=== PATIENT | female | born 1960 | race Caucasian/White ===

== ENCOUNTER 2017-07-26 07:24 | Emergency (ER) | payer BC ==
[~2017-07-26] VITALS: Ht 157.5 cm; Wt 102.7 kg
[~2017-07-26 07:24] MED LIST: NAPROSYN500 MG PO; VALIUM5 MG PO; ZIAC 5/6.251 TABLET PO
[2017-07-26 08:08] LABS: HEMATOCRIT 39.6 % (36.0-46.0); HEMOGLOBIN 13.7 G/DL (11.9-15.5); MCH 31.3 PG (29.0-34.0); MCHC 34.6 G/DL (30.0-36.0); MCV 90.4 FL (83-99); PLATELET COUNT 225 K/uL (156-360); RBC DIS.WIDTH-CV 11.8 % (11.8-14.6); RBC DIS.WIDTH-SD 38.9 % (39-53); RED BLOOD COUNT 4.38 M/uL (3.80-5.20)
[2017-07-26 08:16] LABS: CHLORIDE 102 mEq/L (99-109); POTASSIUM 3.8 mEq/L (3.7-5.4); SODIUM 139 mEq/L (136-147)
[2017-07-26 08:17] LABS: GLUCOSE 202 mg/dL (70-99)
[2017-07-26 08:21] LABS: CREATININE 0.8 mg/dL (0.6-1.3); GFR ESTIMATE (CALCULATED) > 59 mL/min/
[2017-07-26 08:22] LABS: UREA NITROGEN (BUN) 20 mg/dL (9-23)
[2017-07-26 09:05] LABS: BILIRUBIN NEGATIVE; BLOOD SMALL; COLOR YELLOW ((YELLOW)); GLUCOSE (STRIP) 50; KETONES NEGATIVE; LEUKOCYTES SMALL; NITRITE NEGATIVE; PROTEIN (STRIP) NEGATIVE; SPECIFIC GRAVITY 1.019 (1.000-1.030); UROBILINOGEN 0.2 MG/DL (0.2-1.0)
[2017-07-26 09:06] LABS: APPEARANCE SL.HAZY ((CLEAR))
[2017-07-26 09:10] LABS: BACTERIA 3+ /HPF; EPITHELIAL CELLS RARE /HPF; MUCUS TRACE /LPF; UCUL ADDED? YES; WHITE BLOOD CELLS 20-30 /HPF (0-5)
[2017-07-26] MEDS ORDERED: FLOMAX0.4 MG PO (09:19)
[2017-07-26] MEDS ORDERED: PERCOCET 5/31 TABLET PO (09:19)
[2017-07-26] MEDS ORDERED: CIPRO500 MG PO (09:19)
[2017-07-26] MEDS ORDERED: ZOFRAN4 MG PO (09:23)
[2017-07-26 09:43] VITALS: BP 132/101
== END 2017-07-26 09:45 | disposition home or self-care (01) ==
LOC: EME 07:24
PROVIDERS: Emergency Medicine
DX: N20.0 Calculus of kidney (principal); N39.0 Urinary tract infection, site not specified; E78.5 Hyperlipidemia, unspecified; I10 Essential (primary) hypertension; Z87.442 Personal history of urinary calculi; Z90.710 Acquired absence of both cervix and uterus
CPT/HCPCS: 74176; 80048; 81003; 85027; 87077; 87086; 87186; 99281; 99284; J1885; J2405; J7030